=== PATIENT | male | born 1975 | race African-American/Black ===

== ENCOUNTER 2017-02-03 09:29 | Emergency (ER) | payer BC ==
[2017-02-03 09:48] VITALS: BP 137/97; PULSE 84; TEMP 98; BMI 27.2
[2017-02-03] MEDS ORDERED: KETOROLAC TROMETHAMINE 30 MG/1 ML VIAL IVPUSH ONE (10:09)
[2017-02-03] MEDS ORDERED: METOCLOPRAMIDE HCL INJECTION 10 MG/2 ML VIAL IVPUSH ONE (10:09)
[2017-02-03] MEDS ORDERED: SODIUM CHLORIDE 1,000 ML IV STA (10:09)
--- NOTE | 2017-02-03 10:17 | PDOC ---
History of Present Illness - General Chief Complaint: Back Pain Stated Complaint: F/U SINUS INFECTION WITH BACK PAIN Time Seen by Provider: 02/03/17 09:40 History Source: Patient Exam Limitations: No Limitations - History of Present Illness Initial Comments: 02/03/17 10:12 Patient is a 42M with history of borderline hypertension here today complaining of headache. The headache is located around the entire head and made worse by light and sound. It radiates down his neck and back. He states that he was treated for sinusitis with augmentin 9 days ago and is on day 9 . He reports medical compliance. The headache and back ache developed three days ago after many episodes of coughing. The headache was worse yesterday, which he described as the worst headache of his life, and is currently a 6/10 now. He endorses nausea, subjective fevers, chills, and cough. He denies vomiting. He states that his cough and recent illness has been improving since being given antibiotics. PCP is Dr Mccrary. Past History - Past Medical History Allergies/Adverse Reactions: Allergies Allergy/AdvReac Type Severity Reaction Status Date / Time cephalexin Allergy Unknown Unverified 02/03/17 09:38 Home Medications: Ambulatory Orders Acetaminophen [Tylenol Extra Strength] 1,000 mg PO QID PRN 02/03/17 Albuterol Sulfate Inhaler - [Ventolin Hfa Inhaler -] 1 - 2 inh PO QID PRN Amox-Tr/K Cl [Augmentin - 875Mg Tablet] 1 tab PO BID 02/03/17 Promethazine/Phenyleph/Codeine [Phenergan VC+Codeine Syrup] 5 ml PO TID PRN Asthma: Yes - Psycho/Social/Smoking Cessation Hx Anxiety: No Suicidal Ideation: No Smoking History: Never smoked Hx Alcohol Use: No Drug/Substance Use Hx: No Substance Use Type: None Review of Systems - Review of Systems Constitutional: Yes: Chills, Fever, Loss of Appetite, Malaise, Weakness HEENTM: No: Eye Pain, Recent change in vision Respiratory: Yes: Cough. No: Shortness of Breath, Wheezing Cardiac (ROS): Yes: Chest Pain (bilateral chest pain with coughing). No: Palpitations ABD/GI: Yes: Nausea. No: Constipated, Diarrhea, Vomiting : No: Burning, Dysuria Musculoskeletal: Yes: Back Pain, Joint Pain, Muscle Pain Integumentary: No: Bruising, Rash Neurological: Yes: Headache. No: Numbness, Tingling *Physical Exam - Vital Signs Last Vital Signs Temp Pulse Resp BP Pulse Ox 98.0 F 84 15 137/97 99 02/03/17 09:36 02/03/17 09:36 02/03/17 09:36 02/03/17 09:36 02/03/17 09:36 - Physical Exam Comments: 02/03/17 10:21 GENERAL: Awake, alert, and fully oriented, in no acute distress HEAD: No signs of trauma, normocephalic, atraumatic EYES: PERRLA, EOMI, sclera anicteric, conjunctiva clear ENT: Auricles normal inspection, hearing grossly normal, nares patent, oropharynx inflammed without exudates. Moist mucosa NECK: Normal ROM, supple LUNGS: No distress, speaks full sentences, clear to auscultation bilaterally HEART: Regular rate and rhythm, normal S1 and S2, no murmurs, rubs or gallops ABDOMEN: Soft, nontender, normoactive bowel sounds. No guarding, no rebound. No masses EXTREMITIES: Normal inspection, Normal range of motion, no edema. No clubbing or cyanosis. NEUROLOGICAL: Cranial nerves II through XII grossly intact. Normal speech, normal gait, no focal sensorimotor deficits SKIN: Warm, Dry, normal turgor, no rashes or lesions noted. ED Treatment Course - LABORATORY CBC & Chemistry Diagram: 02/03/17 10:35 02/03/17 10:35 - RADIOLOGY Radiology Studies Ordered: Category Date Time Status HEAD CT WITHOUT CONTRAST [CT] Stat CT Scan 02/03/17 10:08 Ordered Medical Decision Making - Medical Decision Making 02/03/17 11:03 Patient is a 42 with history of borderline hypertension here today complaining of headache and backache. Vital signs stable and normal. Differential diagnosis includes, but is not limited to: tension headache, migraine, viral meningitis. Will do CBC, CMP, INR and CT as initial evaluation. Will discuss need for lumbar puncture with patient after initial workup completed. 02/03/17 12:13 CT and labs normal. Need for LP to truly rule out meningitis and subarachnoid hemorrhage discussed with patient. Risks and benefits discussed. Patient declined to consent for lumbar puncture, and demonstrated understanding of risks of not having procedure done. Counseled to come back if symptoms worsen or persist. Feel comfortable with this plan given supple neck, normal vital signs, and non-toxic appearance. *DC/Admit/Observation/Transfer Diagnosis at time of Disposition: Headache Qualifiers: Headache type: unspecified Headache chronicity pattern: acute headache Intractability: not intractable Qualified Code(s): R51 - Headache - Discharge Dispostion Disposition: HOME Condition at time of disposition: Good Admit: No - Patient Instructions Printed Discharge Instructions: DI for Headache - Attestations Physician Attestion: 02/03/17 12:17 I, Dr. Saran Bell, attest that this document has been prepared under my direction and personally reviewed by me in its entirety. I further attest, that it accurately reflects all work, treatment, procedures and medical decision -making performed by me.
[2017-02-03] MEDS ORDERED: KETOROLAC TROMETHAMINE 30 MG/1 ML VIAL ONE (10:18)
--- NOTE | 2017-02-03 10:19 | PDOC ---
Attending Attestation - Resident Resident Name: Saran Bell - ED Attending Attestation I have performed the following: I have examined & evaluated the patient, The case was reviewed & discussed with the resident, I agree w/resident's findings & plan, Exceptions are as noted - HPI HPI: 02/03/17 10:16 42-year-old male with history of asthma, borderline hypertension presents to the emergency department for headache and neck and back pain. The patient was treated last week for bronchitis and sinusitis with Augmentin and is currently on his 10th day of antibiotics. However, 3 days ago, patient developed a gradually worsening constant tension-like headache with associated photophobia and phonophobia. Reports that yesterday was at its maximum intensity. Despite taking Tylenol and codeine, the headache would not improve. Reports some neck and generalized body aches but denies neck stiffness. Denies nausea or vomiting. Denies royer fevers but reports that his cough is improving with antibiotics. Denies recent travels, denies sick contacts. Patient had contact his primary care physician who referred the patient to the emergency department. - Physicial Exam PE: 02/03/17 10:17 GENERAL: Awake, alert, and fully oriented, in no acute distress. HEAD: No signs of trauma EYES: PERRLA, EOMI, sclera anicteric, conjunctiva clear ENT: Auricles normal inspection, hearing grossly normal, nares patent, oropharynx clear without exudates. NECK: Normal ROM, supple, no lymphadenopathy, JVD, or masses LUNGS: Breath sounds equal, clear to auscultation bilaterally. No wheezes, and no crackles HEART: Regular rate and rhythm, normal S1 and S2, no murmurs, rubs or gallops ABDOMEN: Soft, nontender, normoactive bowel sounds. No guarding, no rebound. No masses EXTREMITIES: Normal range of motion, no edema. No clubbing or cyanosis. No cords, erythema, or tenderness NEUROLOGICAL: Cranial nerves II through XII intact. Normal speech, normal gait. 5/5 strength upper and lower extremities. Sensation intact throughout. No cerebellar signs. Negative Kernig's and Brudzinski's. SKIN: Warm, Dry, normal turgor, no rashes or lesions noted. - Medical Decision Making 02/03/17 10:18 Vital Signs Temp Pulse Resp BP Pulse Ox 98.0 F 84 15 137/97 99 02/03/17 09:36 02/03/17 09:36 02/03/17 09:36 02/03/17 09:36 02/03/17 09:36 The patient is presenting with headache in the context of recent illness. It may likely be that the patient has viral syndrome given the circumstances. However, given the patient complains of headache with neck pain, we'll obtain a head CT, labs. We'll need to consider lumbar puncture to rule out viral meningitis. 02/03/17 12:15 CBC, BMP 02/03/17 10:35 02/03/17 10:35 CMP Sodium 136 mmol/L (136-145) 02/03/17 10:35 Potassium 3.7 mmol/L (3.5-5.1) 02/03/17 10:35 Chloride 99 mmol/L (98-107) 02/03/17 10:35 Carbon Dioxide 30 mmol/L (22-28) H 02/03/17 10:35 Anion Gap 7 (8-16) L 02/03/17 10:35 BUN 13 mg/dl (7-18) 02/03/17 10:35 Creatinine 1.0 mg/dl (0.6-1.3) 02/03/17 10:35 Creat Clearance w eGFR > 60 (>60) 02/03/17 10:35 Random Glucose 114 mg/dl (74-106) H 02/03/17 10:35 Calcium 9.3 mg/dl (8.4-10.2) 02/03/17 10:35 Total Bilirubin 1.4 mg/dl (0.2-1.0) H 02/03/17 10:35 AST 20 U/L (10-42) 02/03/17 10:35 ALT 29 U/L (10-40) 02/03/17 10:35 Alkaline Phosphatase 65 U/L (32-92) 02/03/17 10:35 Total Protein 8.0 g/dl (6.4-8.3) 02/03/17 10:35 Albumin 4.5 g/dl (3.5-5.0) 02/03/17 10:35 INR, PTT INR 1.09 (0.82-1.09) 02/03/17 10:35 We had discussed with the patient regards for lumbar puncture and the risks and benefits. After discussion, the patient declines lumbar puncture. States that his headache has improved somewhat with the medications. The patient does not have a rash, neck is supple and overall is nontoxic appearing. He has minimal to moderate headache. However, the patient has been advised that if symptoms worsen, the patient should return to the ED. Given his clinical appearance, will allow him to defer LP at this time.
[2017-02-03 10:49] LABS: BASOPHIL 4.7 % (0-2.0); EOSINOPHIL 0.2 % (0-4.5); MCH 31.1 pg (25.7-33.7); MCHC 33.9 g/dl (32.0-35.9); MEAN CELL VOLUME 91.9 fl (80-96); MEAN PLT VOLUME 9.3 fl (7.5-11.1); NEUTROPHILS 70.9 % (42.8-82.8); PLATELET COUNT 154 K/MM3 (134-434); RDW 12.6 % (11.9-15.9); WHITE BLOOD COUNT 9.1 K/mm3 (4.0-10.8)
[2017-02-03 11:14] LABS: INR 1.09 (0.82-1.09); PROTHROMBIN TIME (PATIENT) 12.2 SEC (10.2-13.0)
[2017-02-03 11:18] LABS: ALBUMIN 4.5 g/dl (3.5-5.0); ALK PHOS 65 U/L (32-92); ANION GAP 7 (8-16); BILIRUBIN,TOTAL 1.4 mg/dl (0.2-1.0); CALCIUM 9.3 mg/dl (8.4-10.2); CO2 30 mmol/L (22-28); GLUCOSE,RANDOM 114 mg/dl (74-106); SGOT/AST 20 U/L (10-42); SGPT/ALT 29 U/L (10-40)
== END 2017-02-03 12:34 | disposition home or self-care (01) ==
LOC: FER 09:29
PROC: 3E0333Z Introduction of Anti-inflammatory into Peripheral Vein, Percutaneous Approach (ICD-10-PCS; principal; 2017-02-03)
PROC: 3E033GC Introduction of Other Therapeutic Substance into Peripheral Vein, Percutaneous Approach (ICD-10-PCS; 2017-02-03)
PROC: 3E0337Z Introduction of Electrolytic and Water Balance Substance into Peripheral Vein, Percutaneous Approach (ICD-10-PCS; 2017-02-03)
DX: R51 Headache (principal); Z88.1 Allergy status to other antibiotic agents
CPT/HCPCS: 36415; 70450-TC; 80053; 85025; 85610; 99282-25

== ENCOUNTER 2017-02-04 02:20 | Emergency (ER) | payer BC ==
--- NOTE | 2017-02-04 02:28 | PDOC ---
History of Present Illness - General Chief Complaint: Headache Stated Complaint: "RETURN VISIT WITH HEDACHE" Time Seen by Provider: 02/04/17 02:27 - History of Present Illness Initial Comments: This 42-year-old man with a history of borderline hypertension, but otherwise healthy presents with recurrent headache. Patient was seen in the emergency room here approximately 12 hours prior to the current presentation. At that time, basic laboratory evaluation and noncontrast head CT were performed to evaluate 4 day history of progressive headache (described as becoming "worse headache of life"). Headache developed after an episode of sinusitis/ bronchitis. Patient currently is at the end of a 10 day course of Augmentin. Notable headache features: Photophobia/phonophobia, bilateral, nonpulsatile, worse with movement, no nausea/vomiting. No personal or family history of migraine although his mother has chronic headaches (never diagnosed as migraine) Workup earlier today revealed essentially normal laboratory evaluation and normal noncontrast head CT. Patient was treated with IV ketorolac and IV metoclopramide. Risks and benefits of LP were discussed with the patient and the patient deferred performance of this procedure. Patient states that he had some relief of his headache on discharge. Over the next several hours after discharge, headache pain recurred and patient had no relief with OTC ibuprofen or aspirin. On presentation now, headache features are the same; he currently has photophobia/phonophobia but has not developed nausea/vomiting Past History - Past Medical History Allergies/Adverse Reactions: Allergies Allergy/AdvReac Type Severity Reaction Status Date / Time cephalexin Allergy Unknown Verified 02/04/17 02:48 Home Medications: Ambulatory Orders Naproxen [Naprosyn -] 500 mg PO BID PRN #20 tablet 02/04/17 Sumatriptan Succinate [Imitrex] 50 mg PO BID PRN #10 tablet 02/04/17 Asthma: Yes - Psycho/Social/Smoking Cessation Hx Anxiety: No Suicidal Ideation: No Smoking History: Never smoked Hx Alcohol Use: No Drug/Substance Use Hx: No Substance Use Type: None Review of Systems - Review of Systems Able to Perform ROS?: Yes Comments:: 12 point review of systems is negative except for what is noted in the history of present illness *Physical Exam - Physical Exam Comments: GENERAL: Adult male, alert and oriented 3, in mild distress secondary to headache HEAD: Normal with no signs of trauma. EYES: PERRLA, pupils 3 mm equal and reactive to light EOMI, sclera anicteric, conjunctiva clear. ENT: Ears normal, nares patent, oropharynx moderately erythematous without exudates. Moist mucous membranes. NECK: Normal range of motion, supple without lymphadenopathy, JVD, or masses. LUNGS: Breath sounds equal, clear to auscultation bilaterally. No wheezes, and no crackles. HEART:Regular rate and rhythm, normal S1 and S2 without murmur, rub or gallop. ABDOMEN:.normal bowel sounds No guarding,tenderness or rebound.No masses No distention. EXTREMITIES: Normal range of motion, no edema. No clubbing or cyanosis. No erythema, or tenderness. NEUROLOGICAL: Cranial nerves II through XII grossly intact. Motor 5/5 throughout; no pronator drift, speech normal and fluent Gait normal, negative Brudzinski, negative Kernig MUSCULOSKELETAL: Back non-tender to palpation, no CVA tenderness SKIN: Warm, Dry, normal turgor, no rashes or lesions noted. Progress Note - Progress Note Progress Note: This 42-year-old man seen here earlier today and having partial relief of his 4 day old headache after Toradol/Reglan IV, presents with recurrent headache. Patient attempted treatment with [id number] ibuprofen and aspirin at home without success. There are no new features of his headache. On exam, of note, patient has supple neck without evidence of meningeal signs. Neurologic exam likewise is without focal findings. Although atypical for all features of migraine, the longevity of the episode and presence of photophobias/phonophobia suggest migraine. Imitrex 6 mg subcutaneously administered. Approximately 30 minutes after administration of Imitrex, patient reports "some relief" in his headache. He had reports no side effects to the medication except for brief discomfort at the site of the injection. One hour after SQ Imitrex, patient states that headache is "85% gone". He felt comfortable enough to go home and sleep. The patient was given 500 mg of naproxen which he will take at home after eating a small amount of food. Prescriptions for Imitrex 50 mg (#10) to be used up to twice a day for headache and naproxen 500 mg to be used as needed twice a day for headache or transmitted to his pharmacy. Patient should follow-up with his PMD, Dr. Mccrary within the next 3-4 days. He should return to the emergency room if he has worsening of his headache or develops vomiting *DC/Admit/Observation/Transfer Diagnosis at time of Disposition: Migraine Qualifiers: Migraine type: unspecified Status migrainosus presence: with status migrainosus Intractability: not intractable Qualified Code(s): G43.901 - Migraine, unspecified, not intractable, with status migrainosus - Discharge Dispostion Disposition: HOME Condition at time of disposition: Improved - Prescriptions Prescriptions: Sumatriptan Succinate [Imitrex] 50 mg PO BID PRN #10 tablet PRN Reason: Headache Naproxen [Naprosyn -] 500 mg PO BID PRN #20 tablet PRN Reason: Headache - Referrals Referrals: Guicho Mccrary MD [Staff Physician] - 3 days - Patient Instructions Printed Discharge Instructions: Migraine -- Adult Additional Instructions: Rest; plenty fluids Keep head elevated Sumatriptan 50 mg as needed for headache; can repeat after 2 hours if headache is persistent up to twice a day Naproxen 500 mg up to twice a day (take with food) Follow-up with Dr. Mccrary within the next 3 days Return to emergency room if you have severe headache/vomiting
[2017-02-04 02:33] VITALS: BP 130/81; PULSE 77; TEMP 98.9; BMI 27.2
[2017-02-04] MEDS ORDERED: SUMATRIPTAN SUCCINATE 6 MG/0.5 ML VIAL SQ ONE (02:46)
[2017-02-04] MEDS ORDERED: SUMATRIPTAN SUCCINATE 6 MG/0.5 ML VIAL ONE (02:49)
[2017-02-04] MEDS ORDERED: NAPROXEN 500 MG TABLET (FP) PO ONE (03:32)
[2017-02-04] MEDS ORDERED: NAPROXEN 500 MG TABLET (FP) ONE (03:34)
== END 2017-02-04 03:43 | disposition home or self-care (01) ==
LOC: FER 02:20
PROC: 3E013GC Introduction of Other Therapeutic Substance into Subcutaneous Tissue, Percutaneous Approach (ICD-10-PCS; principal; 2017-02-04)
DX: G43.901 Migraine, unspecified, not intractable, with status migrainosus (principal); Z88.1 Allergy status to other antibiotic agents
CPT/HCPCS: 99281-25